=== PATIENT | male | born 1995 | race American Indian/Alaskan Native ===

== ENCOUNTER 2021-05-02 17:26 | Emergency (ER) | payer SELFPAY ==
[2021-05-02 17:43] VITALS: BP 164/72
== END 2021-05-02 22:18 | disposition left against medical advice (07) ==
LOC: ED 17:26
DX: K08.89 Other specified disorders of teeth and supporting structures (principal); Z53.21 Procedure and treatment not carried out due to patient leaving prior to being seen by health care provider